=== PATIENT | female | born 1965 | race Caucasian/White ===

== ENCOUNTER 2021-08-03 06:53 | Day surgery (SDC) | payer OTHER ==
[2021-08-02 12:17] LABS: COVID AG,FIA SOURCE NASOPHARYNGEAL
[~2021-08-03] VITALS: Ht 154.9 cm; Wt 131.4 kg
[~2021-08-03 06:53] MED LIST: SODIUM CHLORIDE 0.9% 1,000 ML IV ONE
[2021-08-03] MEDS ORDERED: SODIUM CHLORIDE 0.9% 1,000 ML ONE (06:54)
[2021-08-03] MEDS ORDERED: OXYGEN THERAPY IH SCH (09:15)
[2021-08-03] MEDS ORDERED: HYDR200T4 PO (09:24)
[2021-08-03] MEDS ORDERED: LISI20TA24 PO (09:24)
[2021-08-03] MEDS ORDERED: LIDOCAINE/PF 2% 5 ML SYRINGE IVP ONE (12:00)
[2021-08-03] MEDS ORDERED: PROPOFOL 1% 20 ML VIAL IVP ONE (12:00)
== END 2021-08-03 10:25 | disposition home or self-care (01) ==
LOC: SURGERY 06:53
PROVIDERS: ATTEND Specialist
DX: R19.5 Other fecal abnormalities (principal); M06.9 Rheumatoid arthritis, unspecified; I10 Essential (primary) hypertension; Z79.899 Other long term (current) drug therapy; Z98.890 Other specified postprocedural states
CPT/HCPCS: 45378; 87426; C9803; J2704; J3490; J7030